=== PATIENT | male | born 1980 | race Asian ===

== ENCOUNTER 2022-03-17 16:49 | Emergency (ER) | payer OTHER ==
[2022-03-17] VITALS (11 sets, daily range): BP systolic 103–128; BP diastolic 67–84
[~2022-03-17] VITALS: Ht 172.7 cm; Wt 75.0 kg
[2022-03-17 17:51] LABS: HEMATOCRIT 44.4 % (39.0-50.0); IMMATURE GRANULOCYTES 0.1 % (0.0-5.0); MEAN CELL VOLUME 67.9 fL CALC (80.0-100.0); MEAN CORPUSCULAR HGB 21.4 pG CALC (26.0-32.0); MEAN CORPUSCULAR HGB CONC 31.5 g/dL CAL (32.0-36.0); NEUT# 4.43 thou/uL (1.82-7.42); RED BLOOD COUNT 6.54 mill/uL (4.70-6.10)
[2022-03-17 18:10] LABS: ALBUMIN 4.7 g/dL (3.2-5.0); ALKALINE PHOSPHATASE 72 u/l (38-126); ANION GAP 14 (6-22 (CALC)); BILIRUBIN, TOTAL 0.5 mg/dL (0.0-1.4); BUN 16 mg/dL (9-20); BUN/CREATININE RATIO 13 (12-20 (CALC)); CARBON DIOXIDE 24 mmol/l (22-30); CHLORIDE 108 mmol/l (95-108); CREATININE 1.3 mg/dL (0.7-1.3); GFR FOR AFR.AMER. > 60 ML/MIN (>=60 (CALC)); GFR OTHER RACES > 60 ML/MIN (>=60 (CALC)); POTASSIUM 4.6 mmol/l (3.5-5.1); SGOT/AST 38 u/l (17-59); SODIUM 141 mmol/l (137-146); TOTAL PROTEIN 8.1 g/dL (6.3-8.2)
[2022-03-17] MEDS ORDERED: LORTAB 5/3255 MG PO (19:42)
[2022-03-17] MEDS ORDERED: CYCLOBENZAPRINE10 MG PO (19:42)
[2022-03-17] MEDS ORDERED: NAPROXEN500 MG PO (19:42)
== END 2022-03-17 21:15 | disposition home or self-care (01) | DRG 206 ==
LOC: ED 16:49
PROVIDERS: Nurse Practitioner
DX: S27.329A Contusion of lung, unspecified, initial encounter (principal); V49.40XA Driver injured in collision with unspecified motor vehicles in traffic accident, initial encounter; S16.1XXA Strain of muscle, fascia and tendon at neck level, initial encounter
CPT/HCPCS: Q9967